=== PATIENT | female | born 1985 ===

== ENCOUNTER 2025-01-15 01:00 | Inpatient (IN) | payer OTHER ==
[~2025-01-15] VITALS: Ht 167.6 cm; Wt 75.2 kg
[2025-01-15] MEDS ORDERED: Ondansetron HCl 2 MG / ML 2ML Vial IV PRN ×2 (04:10→04:40)
[2025-01-15] MEDS ORDERED: FLU VACC TS2025-26(6MOS UP)/PF 45 MCG/0.5 ML SYRINGE IM ONE (04:15)
[2025-01-15] MEDS ORDERED: CefTRIAXone Sodium 1,000 MG in NS 100 ML IV SCH (04:33)
[2025-01-15] MEDS ORDERED: NS 250 ML IV PRN (04:50)
[2025-01-15] MEDS ORDERED: HYDROmorphone HCl/Pf 1MG SYR IV PRN (05:00)
[2025-01-15] MEDS ORDERED: HYDROmorphone HCl/Pf 1MG SYR IV ONE (05:00)
[2025-01-15 05:09] LABS: Hematocrit 32.5 % (33.0-51.0); Hemoglobin 9.4 g/dL (11.5-16.0); Mean Corpuscular HGB Conc 28.9 g/dL (31.5-36.5); Mean Corpuscular Volume 70 fL (80-100); NRBC ABSOLUTE 0.00 K/mm3 (0.00-0.02); NRBC Auto 0.0 /100 WBC (0.0-0.2); Platelet Count 271 K/mm3 (150-400); RDW Coefficient Variation 19.5 % (11.7-14.2); RDW Standard Deviation 47.7 fL (35.1-46.3)
--- NOTE | 2025-01-15 05:41 | NUR ---
SHIFT SUMMARY DIRECT ADMIT THIS SHIFT FOR PYLEONEPHRITIS. FULL CODE. SHE CAME FROM [facility]. IV FLUIDS INFUSING. IV ANTIB RX ARE SCHEDULED. PAIN RX GIVEN. ADA DIET. ON RA. A&O X4. HX: DM 1.
[2025-01-15 05:55] LABS: Alanine Aminotransfer (ALT/SGP 23.0 U/L (12-78); Albumin, Blood 2.6 g/dL (3.4-5.0); Albumin/Globulin Ratio 0.6 (0.8-1.8); Anion Gap 9.0 mmol/L (3-11); Aspartate Aminotrans (AST/SGOT 21.0 U/L (12-37); Bilirubin, Total 0.3 mg/dL (0.1-1.0); Blood Urea Nitrogen 12.0 mg/dL (8-24); CO2, Blood 25.0 mmol/L (21-32); Calcium, Blood 8.5 mg/dL (8.5-10.1); Chloride, Blood 104.0 mmol/L (98-108); Creatinine, Blood 0.81 mg/dL (0.40-1.00); Globulin, Blood 4.2 g/dL (2.2-4.0); Glucose, Blood 266.0 mg/dL (70-99); Magnesium, Blood 1.9 mg/dL (1.6-2.4); Potassium, Blood 4.1 mmol/L (3.5-5.5); Sodium, Blood 134.0 mmol/L (136-145); Total Protein, Blood 6.8 g/dL (6.4-8.2)
[2025-01-15] MEDS ORDERED: Polyethylene Glycol 3350 17 gm PO PRN (06:50)
[2025-01-15] MEDS ORDERED: Enoxaparin 40 MG/0.4 ML SYR SC SCH ×2 (07:00→11:00)
[2025-01-15] MEDS ORDERED: Insulin Human Lispro 100 Units/ML 3ML Syringe SC SCH ×2 (07:30→12:30)
[2025-01-15 07:55] VITALS: BP 147/81
[2025-01-15] MEDS ORDERED: Lactobacil 2-S.Thermo-Bifido 1 1 Cap PO SCH (09:00)
[2025-01-15] MEDS ORDERED: Insulin Glargine 100 Unit/ML 3 ML SYR SC SCH (09:00)
[2025-01-15] MEDS ORDERED: MetroNIDAZOLE 500MG/NS 100 ml 100 ML IV SCH (09:30)
[2025-01-15] MEDS ORDERED: INSDET100 SC (15:23)
[2025-01-15] MEDS ORDERED: HUMALOG100 UNIT/1 SC (15:23)
[2025-01-15 15:43] VITALS: BP 147/74
--- NOTE | 2025-01-15 17:35 | NUR ---
PATIENT SLEPT MOST OF DAY ONLY GETTING UP TO USE THE RESTROOM. PATIENT HAS ONLY ASKED FOR PAIN MEDS 2 TIMES THIS SHIFT. LAST DOSE GIVEN THIS AFTERNOON. PATIENT USES CALL LIGHT APPROPRIATELY. PATIENT HAS NO CONCERNS AT THIS TIME.
[2025-01-15 19:31] VITALS: BP 112/76
[2025-01-16 03:55] VITALS: BP 135/94
--- NOTE | 2025-01-16 04:26 | NUR ---
SHIFT SUMMARY PATIENT ADMITTED FOR PYELONEPHRITIS. VSS. PATIENT COMPLAINING OF PAIN IN RIGHT FLANK AND RLQ, MEDICATED FOR PAIN PER EMAR THIS SHIFT. PATIENT RESTING THROUGHOUT THE SHIFT. IV IN LAC CAME OUT, NEW IV PLACED ALSO IN LAC. INDEPENDENT IN ROOM. BED RAILS UP X2. BED IN LOWEST POSITION FOR SAFETY.
[2025-01-16 05:24] LABS: BASOPHILS ABSOLUTE AUTO 0.05 K/mm3 (0.00-0.23); BASOPHILS PERCENT AUTO 0 % (0-2); EOSINOPHILS ABSOLUTE AUTO 0.36 K/mm3 (0.00-0.68); EOSINOPHILS PERCENT AUTO 2 % (0-6); Hematocrit 27.2 % (33.0-51.0); Hemoglobin 7.9 g/dL (11.5-16.0); IMMATURE GRAN ABSOLUTE AUTO 0.13 K/mm3 (0.00-0.10); IMMATURE GRAN PERCENT AUTO 1 % (0-1); LYMPHOCYTES ABSOLUTE AUTO 1.42 K/mm3 (0.84-5.20); LYMPHOCYTES PERCENT AUTO 7 % (21-46); MONOCYTES ABSOLUTE AUTO 1.57 K/mm3 (0.16-1.47); MONOCYTES PERCENT AUTO 8 % (4-13); Mean Corpuscular HGB Conc 29.0 g/dL (31.5-36.5); Mean Corpuscular Volume 69 fL (80-100); NEUTROPHILS ABSOLUTE AUTO 16.33 K/mm3 (1.96-9.15); NEUTROPHILS PERCENT AUTO 82 % (41-73); NRBC ABSOLUTE 0.00 K/mm3 (0.00-0.02); NRBC Auto 0.0 /100 WBC (0.0-0.2); Platelet Count 243 K/mm3 (150-400); RDW Coefficient Variation 19.1 % (11.7-14.2); RDW Standard Deviation 47.9 fL (35.1-46.3)
[2025-01-16 06:00] LABS: Anion Gap 7.0 mmol/L (3-11); Blood Urea Nitrogen 13.0 mg/dL (8-24); CO2, Blood 27.0 mmol/L (21-32); Calcium, Blood 8.4 mg/dL (8.5-10.1); Chloride, Blood 105.0 mmol/L (98-108); Creatinine, Blood 0.75 mg/dL (0.40-1.00); Glucose, Blood 248.0 mg/dL (70-99); Magnesium, Blood 2.0 mg/dL (1.6-2.4); Phosphorus, Blood 2.2 mg/dL (2.5-4.9); Potassium, Blood 3.9 mmol/L (3.5-5.5); Sodium, Blood 135.0 mmol/L (136-145)
[2025-01-16 07:17] LABS: Ferritin, Serum 43.0 ng/mL (8-252); Total Iron Binding Capacity 344.0 ug/dL (250-450)
[2025-01-16 07:18] VITALS: BP 121/68
[2025-01-16] MEDS ORDERED: HYDROmorphone HCl/Pf 1MG SYR IV PRN (12:10)
--- NOTE | 2025-01-16 16:52 | NUR ---
PATIENT VERY TEARFUL THIS SHIFT, EXPRESSING FRUSTRATION AT NOT BEING ON CONTINUOUS ABX THERAPY, THAT THE PO PAIN MEDICATIONS TAKE SO LONG TO WORK AND DON'T GIVE ADEQUATE RELIEF, THAT THE URINE CX TAKES DAYS TO GROW OUT...PATIENT WAS EDUCATED, DOC WAS CALLED TO ADJUST PAIN MEDICATIONS, WARM PACK WAS GIVEN FOR FLANK PAIN, NICOTINE PATCH ORDERED, EMOTIONAL SUPPORT OFFERED. A/O X4. MENSTRUATING AT THIS TIME, UNABLE TO ASSESS COLOR OF URINE ACCURATELY. REPORTS NO UTI SYMPTOMS AT THIS TIME. ABLE TO MAKE NEEDS KNOWN. CALL LIGHT IN REACH.
[2025-01-16] MEDS ORDERED: Insulin Human Lispro 100 Units/ML 3ML Syringe SC SCH (17:30)
[2025-01-16 19:18] VITALS: BP 141/84
[2025-01-17 02:56] VITALS: BP 144/89
--- NOTE | 2025-01-17 04:43 | NUR ---
SUMMARY: PT A/OX4, IS PLEASANT AND COOPERATIVE W/CARE AND ENDORSES NEEDS APPROPRIATELY. FLANK PAIN PERSISTS AND PRN IV DILAUDID, PO OXY AND SCHEDULED TYLENOL WERE PROVIDED FOR TOLERABLE RELIEF PER EMAR. SHE REPORTED AN IMPROVED APPETITE AND TOLERATED A SANDWICH AND SNACKS W/O C/O ANY GI UPSET. PT IS STILL MENSTRUATING SO URINE APPEARANCE IS DIFFICULT TO ASSESS BUT SHE DENIES S/S UTI AND IV ABX RECEIVED PER EMAR. NO ACUTE CHANGES, VSS/AFEBRILE. WILL REPORT TO DAY RN.
[2025-01-17 05:10] LABS: BASOPHILS ABSOLUTE AUTO 0.04 K/mm3 (0.00-0.23); BASOPHILS PERCENT AUTO 0 % (0-2); EOSINOPHILS ABSOLUTE AUTO 0.41 K/mm3 (0.00-0.68); EOSINOPHILS PERCENT AUTO 3 % (0-6); Hematocrit 27.9 % (33.0-51.0); Hemoglobin 8.0 g/dL (11.5-16.0); IMMATURE GRAN ABSOLUTE AUTO 0.07 K/mm3 (0.00-0.10); IMMATURE GRAN PERCENT AUTO 1 % (0-1); LYMPHOCYTES ABSOLUTE AUTO 1.40 K/mm3 (0.84-5.20); LYMPHOCYTES PERCENT AUTO 10 % (21-46); MONOCYTES ABSOLUTE AUTO 1.21 K/mm3 (0.16-1.47); MONOCYTES PERCENT AUTO 8 % (4-13); Mean Corpuscular HGB Conc 28.7 g/dL (31.5-36.5); Mean Corpuscular Volume 69 fL (80-100); NEUTROPHILS ABSOLUTE AUTO 11.41 K/mm3 (1.96-9.15); NEUTROPHILS PERCENT AUTO 79 % (41-73); NRBC ABSOLUTE 0.00 K/mm3 (0.00-0.02); NRBC Auto 0.0 /100 WBC (0.0-0.2); Platelet Count 254 K/mm3 (150-400); RDW Coefficient Variation 19.0 % (11.7-14.2); RDW Standard Deviation 47.4 fL (35.1-46.3)
[2025-01-17 05:33] LABS: Anion Gap 8.0 mmol/L (3-11); Blood Urea Nitrogen 12.0 mg/dL (8-24); CO2, Blood 27.0 mmol/L (21-32); Calcium, Blood 8.8 mg/dL (8.5-10.1); Chloride, Blood 104.0 mmol/L (98-108); Creatinine, Blood 0.62 mg/dL (0.40-1.00); Glucose, Blood 234.0 mg/dL (70-99); Magnesium, Blood 2.0 mg/dL (1.6-2.4); Phosphorus, Blood 2.9 mg/dL (2.5-4.9); Potassium, Blood 3.8 mmol/L (3.5-5.5); Sodium, Blood 135.0 mmol/L (136-145)
[2025-01-17 07:49] VITALS: BP 138/91
--- NOTE | 2025-01-17 08:40 | NUR ---
REQUEST FOR BLOOD AND URINE CULTURE RESULTS FAXED TO [facility] PER DR MOISE REQUEST. FAX: [phone]
--- NOTE | 2025-01-17 09:00 | NUR ---
AC BLOOD SUGAR CHECK: [phone]
--- NOTE | 2025-01-17 12:30 | NUR ---
AC BLOOD SUGAR CHECK: [phone]
[2025-01-17] MEDS ORDERED: ACET500 PO (15:28)
[2025-01-17] MEDS ORDERED: FERSU300 PO (15:29)
[2025-01-17] MEDS ORDERED: Diflucan150 MG PO (15:30)
[2025-01-17] MEDS ORDERED: OXAYDO5 M1 PO (15:31)
[2025-01-17] MEDS ORDERED: VISBIOME 112.51 EACH PO (15:32)
[2025-01-17] MEDS ORDERED: PHENA200 PO (15:32)
[2025-01-17] MEDS ORDERED: SULFAMETHOXAZO1 EAC1 PO (15:33)
== END 2025-01-17 17:39 | disposition home or self-care (01) | DRG 872 ==
LOC: MEDS 01:00
PROVIDERS: ADMIT Student in an Organized Health Care Education/Training Program
DX: A41.9 Sepsis, unspecified organism (principal); N12 Tubulo-interstitial nephritis, not specified as acute or chronic; R65.20 Severe sepsis without septic shock; E10.65 Type 1 diabetes mellitus with hyperglycemia; D50.9 Iron deficiency anemia, unspecified; B37.31 Acute candidiasis of vulva and vagina; K38.1 Appendicular concretions; Z90.710 Acquired absence of both cervix and uterus; Z87.891 Personal history of nicotine dependence
CPT/HCPCS: 36415; 80048; 80053; 82728; 82947; 83540; 83550; 83735; 84100; 85025; 85027; A9270; J0696; J1171; J1650; J1815; J7050; J7120